=== PATIENT | female | born 2000 | race Caucasian/White ===

== ENCOUNTER 2021-08-09 11:13 | Emergency (ER) | payer BC, OTHER ==
[2021-08-09 13:13] LABS: Bilirubin Neg (Negative); Blood, Urine Negative (Negative); Clarity Clear (Clear); Glucose, Urine (Dipstick) Normal (Negative); Ketone, Urine 5 mg/dL (Negative); Leukocyte 25 (Negative); Nitrite Negative (Negative); Protein, Urine (Dipstick) Negative (Neg-Trace); Urobilinogen Normal mg/dL (Less than 2)
[2021-08-09 13:19] LABS: Pregnancy Test - Urine (BHCG) Negative (Negative); Pregu Control Background? CLEAR/WHITE (CLR/WHITE); Pregu Control Bar Appear? YES (CONTROL BAR)
[2021-08-09 13:24] LABS: Bacteria/HPF 1+ HPF (None Seen); RBC/HPF 0-3 HPF (0-3); Squamous Epithelial 0-3 HPF (0-3); WBC/HPF 0-3 HPF (0-3)
== END 2021-08-09 13:59 | disposition home or self-care (01) ==
LOC: CSHERS 11:13
DX: R55 Syncope and collapse (principal)
CPT/HCPCS: 81003; 81015; 81025; 93005